=== PATIENT | male | born 1945 | race Caucasian/White ===

== ENCOUNTER 2021-06-06 16:13 | Observation (INO) | payer MEDICARE, OTHER ==
[2021-06-06 16:52] LABS: #Eosinphils 0.1 10x3/uL (0.0-0.5); #Monocytes 0.6 10x3/uL (0.0-1.1); %Basophils 0.3 % (0.0-2.0); %Eosinophils 1.9 % (0.0-6.0); %Lymphocytes 35.8 % (18.0-47.0); %Monocytes 10.4 % (0.0-10.0); %Neutrophils 51.3 % (40.0-75.0); Hemoglobin 14.5 g/dL (13.5-17.5); Mean Corpuscular HGB CONC 33.8 g/dL (32.0-36.0); Mean Corpuscular Hemoglobin 34.6 pg (27.0-33.0); Mean Corpuscular Volume 102.4 fl (81.2-95.1); Mean Platelet Volume 9.9 fl (7.4-10.4); Platelet Count 150 10x3/uL (150-450); RBC Distribution Width 12.7 % (11.5-14.5); Red Blood Cell (RBC) Count 4.19 10x6/uL (4.32-5.72); White Blood Cell (WBC) Count 5.9 10x3/uL (3.5-10.5)
[2021-06-06 17:04] LABS: ALT (SGPT) 27 U/L (8-55); AST (SGOT) 27 U/L (5-34); Albumin 4.4 g/dL (3.4-4.8); Alkaline Phosphatase 49 U/L (40-110); Anion Gap 14 mmol/L (10-20); BUN (Urea Nitrogen) 19 mg/dL (8.4-25.7); Bilirubin, Total 0.6 mg/dL (0.2-1.2); Calc. Creatinine Clearance 0 mL/min (70-130); Calcium 9.2 mg/dL (7.8-10.44); Carbon Dioxide 21 mmol/L (23-31); Chloride 108 mmol/L (98-107); Globulin 2.5 g/dL (2.4-3.5); Glucose 123 mg/dL (83-110); Lipase 44 U/L (8-78); Protein, Total 6.9 g/dL (5.8-8.1); Sodium 139 mmol/L (136-145)
[2021-06-06] MEDS ORDERED: Aspirin Chewable 81 MG TAB ONE (17:07)
[2021-06-06] MEDS ORDERED: Ondansetron PF 4 MG/2 ML Vial IVP PRN (17:49)
[2021-06-06 18:26] LABS: Troponin I Less than 0.010 ng/mL (< 0.028)
[2021-06-06 19:42] LABS: SARS-CoV-2 NAA Rapid Test Not Detected (NotDetected)
[2021-06-06] MEDS ORDERED: Rosuvastatin 10 MG TAB PO SCH (21:00)
[2021-06-06 21:31] LABS: Troponin I 0.019 ng/mL (< 0.028)
[2021-06-06 22:53] LABS: Troponin I 0.015 ng/mL (< 0.028)
[2021-06-07 00:51] LABS: Troponin I 0.012 ng/mL (< 0.028)
[2021-06-07] MEDS: Carvedilol 12.5 MG TAB PO SCH ×2 (02:25→09:10)
[2021-06-07 03:25] LABS: #Eosinphils 0.1 10x3/uL (0.0-0.5); #Monocytes 0.6 10x3/uL (0.0-1.1); %Basophils 0.7 % (0.0-2.0); %Eosinophils 1.8 % (0.0-6.0); %Lymphocytes 36.4 % (18.0-47.0); %Monocytes 9.9 % (0.0-10.0); %Neutrophils 50.9 % (40.0-75.0); Mean Corpuscular HGB CONC 34.7 g/dL (32.0-36.0); Mean Corpuscular Hemoglobin 35.1 pg (27.0-33.0); Mean Corpuscular Volume 101.3 fl (81.2-95.1); Mean Platelet Volume 9.7 fl (7.4-10.4); Platelet Count 150 10x3/uL (150-450); RBC Distribution Width 12.9 % (11.5-14.5); Red Blood Cell (RBC) Count 3.99 10x6/uL (4.32-5.72)
[2021-06-07 03:37] LABS: Anion Gap 12 mmol/L (10-20); BUN (Urea Nitrogen) 19 mg/dL (8.4-25.7); Calc. Creatinine Clearance 0 mL/min (70-130); Calcium 8.7 mg/dL (7.8-10.44); Carbon Dioxide 24 mmol/L (23-31); Chloride 107 mmol/L (98-107); Glucose 101 mg/dL (83-110); Potassium 3.8 mmol/L (3.5-5.1); Sodium 139 mmol/L (136-145)
[2021-06-07] MEDS ORDERED: Furosemide 20 MG TAB PO SCH (09:00)
[2021-06-07] MEDS ORDERED: Cholecalciferol 1,000 UNITS (25 MCG) TAB PO SCH (09:00)
[2021-06-07] MEDS ORDERED: Multivitamin W/ Minerals 1 TAB PO SCH (09:00)
[2021-06-07] MEDS ORDERED: Alogliptin 25 MG TAB PO SCH (09:00)
[2021-06-07] MEDS ORDERED: Aspirin 81 mg Enteric Coated Tablet PO SCH (09:00)
[2021-06-07] MEDS ORDERED: Cyanocobalamin (Vitamin B-12) 1,000 MCG TAB PO SCH (09:00)
[2021-06-07] MEDS ORDERED: Prasugrel 10 MG TAB PO SCH (09:00)
[2021-06-07] MEDS ORDERED: Calcium Carbonate 600 MG + Vit D TAB PO SCH (09:00)
[2021-06-07] MEDS ORDERED: Magnesium Oxide 250 MG TAB PO SCH (09:00)
[2021-06-07] MEDS ORDERED: Enoxaparin Sodium 30 MG/0.3 ML SYRINGE SC SCH (09:00)
[2021-06-07] MEDS ORDERED: Prasugrel 10 MG TAB ONE (09:23)
[2021-06-07] MEDS ORDERED: Aspirin 81 mg Enteric Coated Tablet ONE (09:23)
[2021-06-07] MEDS ORDERED: Enoxaparin Sodium 30 MG/0.3 ML SYRINGE ONE (09:24)
[2021-06-07] MEDS ORDERED: Multivitamin W/ Minerals 1 TAB ONE (09:24)
[2021-06-07] MEDS ORDERED: Carvedilol 12.5 MG TAB ONE (09:27)
[2021-06-07] MEDS ORDERED: Cholecalciferol 1,000 UNITS (25 MCG) TAB ONE (09:27)
== END 2021-06-07 12:00 | disposition home or self-care (01) ==
LOC: CSHERS 16:13 → CSHERHOLD 17:35 → UNDOADMOB 19:42 → CSHERHOLD 19:42 → INTOOBSV 19:42
PROVIDERS: ADMIT Internal Medicine; ATTEND Internal Medicine
DX: I25.118 Atherosclerotic heart disease of native coronary artery with other forms of angina pectoris (principal); Z79.899 Other long term (current) drug therapy; Z79.82 Long term (current) use of aspirin; Z95.5 Presence of coronary angioplasty implant and graft; Z95.1 Presence of aortocoronary bypass graft; E11.9 Type 2 diabetes mellitus without complications; Z79.84 Long term (current) use of oral hypoglycemic drugs; I10 Essential (primary) hypertension; K21.9 Gastro-esophageal reflux disease without esophagitis; E78.5 Hyperlipidemia, unspecified; E03.9 Hypothyroidism, unspecified; I25.2 Old myocardial infarction; Z20.822 Contact with and (suspected) exposure to COVID-19
CPT/HCPCS: 71045; 80048; 80053; 82962; 83690; 83880; 84484 ×3; 85025 ×2; 85379; 93005; 93306; U0002; 36415; 36416; 96372; G0378; J1650

== ENCOUNTER 2022-12-28 01:01 | Observation (INO) | payer MEDICARE, OTHER ==
[2022-12-28 01:40] LABS: ALT (SGPT) 35 U/L (8-55); AST (SGOT) 29 U/L (5-34); Albumin 4.8 g/dL (3.4-4.8); Alkaline Phosphatase 58 U/L (40-110); Anion Gap 19 mmol/L (10-20); BUN (Urea Nitrogen) 22 mg/dL (8.4-25.7); Bilirubin, Total 0.7 mg/dL (0.2-1.2); Calc. Creatinine Clearance 0 mL/min (70-130); Calcium 9.8 mg/dL (7.8-10.44); Carbon Dioxide 20 mmol/L (23-31); Chloride 106 mmol/L (98-107); Estimated GFR 75; Globulin 2.7 g/dL (2.4-3.5); Glucose 194 mg/dL (83-110); Potassium 4.5 mmol/L (3.5-5.1); Protein, Total 7.5 g/dL (5.8-8.1); Sodium 140 mmol/L (136-145)
[2022-12-28 01:46] LABS: #Eosinphils 0.1 10x3/uL (0.0-0.5); #Monocytes 1.2 10x3/uL (0.0-1.1); #Neutrophils 12.3 10x3/uL (1.5-8.4); %Basophils 0.2 % (0.0-2.0); %Eosinophils 0.5 % (0.0-6.0); %Lymphocytes 8.5 % (18.0-47.0); %Monocytes 7.6 % (0.0-10.0); %Neutrophils 80.1 % (40.0-75.0); Hematocrit 47.6 % (38.8-50.0); Hemoglobin 16.5 g/dL (13.5-17.5); Mean Corpuscular HGB CONC 34.7 g/dL (32.0-36.0); Mean Corpuscular Hemoglobin 34.9 pg (27.0-33.0); Mean Corpuscular Volume 100.6 fl (81.2-95.1); Mean Platelet Volume 9.8 fl (7.4-10.4); Platelet Count 196 10x3/uL (150-450); RBC Distribution Width 12.7 % (11.5-14.5); Red Blood Cell (RBC) Count 4.73 10x6/uL (4.32-5.72); Troponin I 0.127 ng/mL (< 0.028); White Blood Cell (WBC) Count 15.4 10x3/uL (3.5-10.5)
[2022-12-28] MEDS ORDERED: Aspirin 325 MG TAB ONE (02:00)
[2022-12-28] MEDS ORDERED: Heparin 25,000 units/D5W 0 ML ONE (02:08)
[2022-12-28] MEDS ORDERED: Heparin 10,000 UNITS/ 10 ML VIAL SLOW IVP SCH (02:15)
[2022-12-28] MEDS ORDERED: Senokot S 8.6-50 MG TAB PO PRN (02:35)
[2022-12-28] MEDS ORDERED: Insulin Regular 300 UNITS/3 ML VIAL SC PRN (02:35)
[2022-12-28] MEDS ORDERED: Dextrose 50% Abboject 50 ML SYRINGE SLOW IVP PRN (02:35)
[2022-12-28] MEDS ORDERED: Glucagon 1 MG/ML KIT IM PRN (02:35)
[2022-12-28] MEDS ORDERED: Dextrose 5% in Water 1,000 ML IV PRN (02:35)
[2022-12-28] MEDS ORDERED: Ondansetron PF 4 MG/2 ML Vial IVP PRN (02:35)
[2022-12-28] MEDS ORDERED: Guaifenesin DM 100-10/5 ML UDCUP PO PRN (02:35)
[2022-12-28] MEDS ORDERED: Calcium Carbonate 500 MG ChewTAB PO PRN (02:35)
[2022-12-28] MEDS ORDERED: Nitroglycerin 0.4 MG TAB (25 Tab Bottle) SL PRN (02:38)
[2022-12-28 03:54] LABS: Troponin I 0.059 ng/mL (< 0.028)
[2022-12-28 04:17] VITALS: BMI 28.9
[2022-12-28] MEDS ORDERED: Lidocaine 2% Viscous Solution 10 ML, Aluminum & Magnesium Hydroxide 30 ML SSW SCH (05:00)
[2022-12-28] MEDS ORDERED: Mag-Al Plus 1200 MG/1200 MG/120 MG/30 ML UDCUP PO SCH (05:15)
[2022-12-28 06:09] LABS: Bilirubin Neg (Negative); Blood, Urine Negative (Negative); Clarity Clear (Clear); Glucose, Urine (Dipstick) >=1000 mg/dL (Negative); Ketone, Urine Negative (Negative); Leukocyte Negative (Negative); Nitrite Negative (Negative); Protein, Urine (Dipstick) Negative (Neg-Trace); Specific Gravity, Urine 1.025 (1.005-1.030); Urobilinogen Normal mg/dL (Less than 2)
[2022-12-28 06:17] LABS: Bacteria/HPF None Seen HPF (None Seen); RBC/HPF None Seen HPF (0-3); WBC/HPF 0-3 HPF (0-3)
[2022-12-28] MEDS ORDERED: Magnesium Oxide 250 MG TAB PO SCH (09:00)
[2022-12-28] MEDS ORDERED: Cholecalciferol 1,000 UNITS (25 MCG) TAB PO SCH (09:00)
[2022-12-28] MEDS ORDERED: ATOMOXETINE HCL 25 MG PO SCH (09:00)
[2022-12-28] MEDS ORDERED: Rosuvastatin 10 MG TAB PO SCH (09:00)
[2022-12-28] MEDS ORDERED: Aspirin 81 mg Enteric Coated Tablet PO SCH (09:00)
[2022-12-28] MEDS ORDERED: Bisoprolol Fumarate 5 MG TAB PO SCH (09:00)
[2022-12-28] MEDS ORDERED: Losartan 25 MG TAB PO SCH (09:00)
[2022-12-28] MEDS ORDERED: [UNRECOGNIZED DRUG - MIXTURE] PO SCH (09:00)
[2022-12-28] MEDS ORDERED: Prasugrel 10 MG TAB PO SCH ×2 (09:00)
[2022-12-28] MEDS ORDERED: Empagliflozin 10 MG TAB PO SCH (09:00)
[2022-12-28] MEDS ORDERED: busPIRone HCl 15 MG TAB PO SCH (09:00)
[2022-12-28] MEDS ORDERED: Bupropion 150 MG SR TAB PO SCH (09:00)
[2022-12-28 10:56] LABS: Cardiac Risk 2.1 (Less than 4.5); Cholesterol 144 mg/dl (< 200 Desired); HDL Cholesterol 67 mg/dL (>60 Neg Risk); LDL Cholesterol, Calculated 38 mg/dL; Triglycerides 196 mg/dL (Less than 150)
[2022-12-28 12:09] VITALS: BP 116/66; TEMP 98
[2022-12-28 13:04] LABS: Hemoglobin A1c 6.3 % (4.0-6.0)
== END 2022-12-28 15:50 | disposition home or self-care (01) ==
LOC: CSHERS 01:01 → CSHTELE 03:31
PROVIDERS: ADMIT Student in an Organized Health Care Education/Training Program; ATTEND Internal Medicine
DX: R07.9 Chest pain, unspecified (principal); I11.0 Hypertensive heart disease with heart failure; I50.32 Chronic diastolic (congestive) heart failure; I16.0 Hypertensive urgency; G47.30 Sleep apnea, unspecified; E78.5 Hyperlipidemia, unspecified; I25.10 Atherosclerotic heart disease of native coronary artery without angina pectoris; N40.0 Benign prostatic hyperplasia without lower urinary tract symptoms; E11.9 Type 2 diabetes mellitus without complications; E03.9 Hypothyroidism, unspecified; F41.8 Other specified anxiety disorders; Z79.82 Long term (current) use of aspirin; Z79.899 Other long term (current) drug therapy; Z96.642 Presence of left artificial hip joint; Z91.040 Latex allergy status; Z95.0 Presence of cardiac pacemaker; Z95.1 Presence of aortocoronary bypass graft; Z88.6 Allergy status to analgesic agent
CPT/HCPCS: 71045; 80061; 81001; 82962; 83036; 83735; 84484 ×2; 85730; 93005; 96372; 99285; G0378 ×2; 36415; 36416; 80053; 84443; 85025; J1644; J1650

== ENCOUNTER 2023-02-14 07:58 | Outpatient (CLI) | payer MEDICARE, OTHER | END 2023-02-14 07:59 | disposition home or self-care (01) | LOC: CSHCT 07:58 | PROVIDERS: ATTEND Physician Assistant Medical | DX: K59.00 Constipation, unspecified (principal) | CPT/HCPCS: 74177; 82565 ==